=== PATIENT | female | born 1960 | race Caucasian/White ===

== ENCOUNTER 2017-08-06 20:11 | Emergency (ER) | payer OTHER ==
[~2017-08-06] VITALS: Ht 160 cm; Wt 58.1 kg
[~2017-08-06 20:11] MED LIST: ESCITALOPRAM OX10 MG PO; NICODERM CQ1 EAC2 TD; PERCOCET 7.5-31 EACH PO; RANITIDINE HCL150 MG PO
[2017-08-06] MEDS ORDERED: ALPRAZOLAM0.5 MG PO (20:27)
[2017-08-06] MEDS ORDERED: MONTELUKAST SOD10 MG PO (20:27)
[2017-08-06] MEDS ORDERED: OMEPRAZOLE20 MG PO (20:27)
[2017-08-06] MEDS ORDERED: IBUPROFEN800 MG PO (20:27)
[2017-08-06] MEDS ORDERED: VENTOLIN HFA18 GM INH (20:28)
--- NOTE | 2017-08-07 15:57 | EKG ---
[facility] [address] [place], [place] [address] Signed Normal sinus rhythm Low voltage QRS Septal infarct , age undetermined Abnormal ECG No previous ECGs available Confirmed by SANDRA THORPE MD ([id number]) on 08/07/2017 3:57:11 PM Electronically Signed By: SANDRA THORPE MD 08/07/17 1557 PATIENT NAME: ANNY MERAZ Electrocardiogram DATE OF : 62 PHYSICIAN: SANDRA THORPE MD REPORT #: [id number] REPORT IS CONFIDENTIAL AND NOT TO BE RELEASED WITHOUT AUTHORIZATION
== END 2017-08-06 21:45 | disposition left against medical advice (07) ==
LOC: ED 20:11
PROC: 0HQ1XZZ Repair Face Skin, External Approach (ICD-10-PCS; principal; 2017-08-06)
DX: S01.511A Laceration without foreign body of lip, initial encounter (principal); F10.129 Alcohol abuse with intoxication, unspecified; E87.1 Hypo-osmolality and hyponatremia; F41.9 Anxiety disorder, unspecified; K21.9 Gastro-esophageal reflux disease without esophagitis; F17.200 Nicotine dependence, unspecified, uncomplicated; Z88.0 Allergy status to penicillin; Z79.899 Other long term (current) drug therapy; W18.30XA Fall on same level, unspecified, initial encounter; W22.8XXA Striking against or struck by other objects, initial encounter; Y90.8 Blood alcohol level of 240 mg/100 ml or more
CPT/HCPCS: 12011; 80053; 85025; 93005; 93010; 99283; G0480

== ENCOUNTER 2018-08-08 09:44 | Observation (INO) | payer OTHER ==
[~2018-08-08] VITALS: Ht 160 cm; Wt 52.6 kg
[~2018-08-08 09:44] MED LIST changes: +ALPRAZOLAM0.5 MG PO; -ESCITALOPRAM OX10 MG PO; +IBUPROFEN800 MG PO; +OMEPRAZOLE20 MG PO; +VENTOLIN HFA18 GM INH
--- OUTSIDE RECORDS SUMMARY | 2018-08-08 10:00 | XMS ---
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 Details: AMA CRITERIA MET - Group Notification - PDMP CARE PROVIDERS FLOR YEUNG Primary Care Current PHONE: [phone] Deng has no Care Guidelines for this patient. ERadha. VISIT COUNT (12 MO.) 1 [facility]. TOTAL 1 NOTE: Visits indicate total known visits. ED/UCC VISIT TRACKING (12 MO.) 08/08/2018 09:45 [facility] [place] TYPE: Emergency COMPLAINT: - POSS DEHYDRATION/WEAKNESS INPATIENT VISIT TRACKING (12 MO.) No inpatient visits to display in this time frame [id number]
--- NOTE | 2018-08-08 14:12 | NUR ---
PT RECEIVED FROM ED. ADMISSION INTAKE COMPLETED. PT RATING PAIN 7/10, GIVEN TYLENOL. PT DENIES NAUSEA AT THIS TIME. IV LR BOLUS INFUSING. DISCUSSED PLAN OF CARE FOR THE DAY. PT DENIES OTHER NEEDS AT THIS TIME.
--- NOTE | 2018-08-08 17:22 | NUR ---
PT SBA TO BATHROOM, VOIDED. PT ASSISTED BACK TO BED. FRESH WATER PROVIDED. LR AT 125 INFUSING. PT DENIES OTHER NEEDS AT THIS TIME.
[2018-08-08] MEDS ORDERED: MONTELUKAST SOD10 MG PO (17:59)
[2018-08-08] MEDS ORDERED: ESCITALOPRAM OX10 MG PO (17:59)
--- NOTE | 2018-08-08 18:01 | NUR ---
MED REC COMPLETE
--- NOTE | 2018-08-08 19:10 | NUR ---
SHIFT REPORT RECEIVED. PATIENT RESTING IN BED. DENIES ANY NEEDS AT THIS TIME. CALL LIGHT IN REACH.
--- NOTE | 2018-08-08 21:00 | NUR ---
EVENING MEDS PROVIDED PER ORDER. PATIENT REPORTS INTERMITTENT EPIGASTRIC PAIN AFTER BURPING. PRN OXY PROVIDED. NIO FOR MAALOX PLACED. PATIENT DENIES NEED FOR THIS BUT KNOWS IT IS AVAILABLE. PATIENT HAS A LITTLE BIT OF NAUSEA WELL, PRN ZOFRAN PROVIDED. ABD IS TENDER, BUT SOFT WITH ACTIVE BOWEL SOUNDS. LUNGS ARE MOSTLY CLEAR, WITH SOME EXPIRTORY RHONCI ON RIGHT UPPER LOBE. RT IN ROOM FOR NEB TREATMENT AND CPT/IS INSTRUCTION. PATIENT DENIES FURTHER NEEDS AT THIS TIME. IV FLUIDS PER ORDER, SITE WNL. CALL LIGHT IN REACH.
--- NOTE | 2018-08-08 22:00 | NUR ---
PATIENT REPORTS PAIN IS STARTING TO RESOLVE AND BURPING PERSIST BUT NOT PAINFULLY. DISCUSSED OPTIONS WITH PATIENT. SHE DENIES ANY NEEDS. CALL LIGHT IN REACH.
--- NOTE | 2018-08-09 00:30 | NUR ---
PATIENT APPEARS TO BE SLEEPING SOUNDLY. RR 20. NEW IV FLUID BAG STARTED. IV SITE WNL.
--- NOTE | 2018-08-09 02:36 | NUR ---
PHILIPPE VALERIO COMPLETED VS AND ASSISTED PATIENT TO THE BATHROOM. NO NEEDS AT THIS TIME.
--- NOTE | 2018-08-09 04:00 | NUR ---
PATIENT APPEARS TO BE RESTING COMFORTABLY. WAKES EASILY TO VOICE. REPORTS GOOD PAIN CONTROL AT THIS TIME. NO NAUSEA. ABD SLIGHTLY TENDER. LUNGS ARE CLEAR. ALLOWED PATIENT TO REST. CALL LIGHT IN REACH. IV FLUIDS PER ORDER.
--- NOTE | 2018-08-09 06:04 | NUR ---
PATIENT RESTING IN BED. DENIES PAIN OR NAUSEA. STATES "I'M JUST REALLY TIRED". IV FLUIDS PER ORDER, SITE WNL. PATIENT UP RECENTLY WITH TENSILE TESTER TO VOID. NO FURTHER NEEDS AT THIS TIME. CALL LIGHT IN REACH.
--- NOTE | 2018-08-09 06:11 | NUR ---
PATIENT HAD SOME EPIGASTRIC BURNING WITH BURPING AT START OF SHIFT. PRN OXY AND ZOFRAN PROVIDED SOME RELIEF. PATIENT SLEPT THROUGHOUT THE NIGHT. DENIES NAUSEA OR PAIN THIS MORNING. NO EMESIS THIS SHIFT. TOLERATING WATER. NO STOOL THIS SHIFT. IV FLUIDS PER ORDER, SITE WNL. SBA FOR AMULATION. CIWA SCORE 0. NO SIGNS OF WITHDRAWL.
--- NOTE | 2018-08-09 07:05 | NUR ---
BEDSIDE HANDOFF REPORT RECEIVED FROM STONE OPERATOR RN. PT SLEEPING, LEFT UNDISTURBED. LR INFUSING AT 125 ML/HR.
--- NOTE | 2018-08-09 08:47 | NUR ---
PT RESTING IN BED. PT DENIES PAIN. PT ON ROOM AIR, LUNG SOUNDS CLEAR, PRODUCTIVE COUGH WITH CLEAR SPUTUM, PT STATES SHE USUALLY HAS A PRODUCTIVE COUGH IN THE MORNING. PT DENIES NAUSEA, BOWEL TONES ACTIVE, ABD SOFT AND NONTENDER. IV ROCEPHIN INFUSING. PT WITHOUT EDEMA, CMS INTACT. CIWA SCORE 0. MEDICATIONS ADMINISTERED BY PSYCH SALES SPECIALIST WITH SUPERVISION. PT DENIES OTHER NEEDS AT THIS TIME.
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
--- NOTE | 2018-08-09 10:45 | NUR ---
PATIENT IN BED WATCHING TV. WATER REFRESHED. WARM WASHCLOTH OFFERED. CALL LIGHT IN REACH. NO FUTHER NEEDS AT THIS TIME.
--- NOTE | 2018-08-09 13:09 | NUR ---
PT COMPLETED WITH SHOWER. IV LR AT 125 INFUSING. PT ON ROOM AIR, LUNG SOUNDS CLEAR. PT DENIES NAUSEA, TOLERATING DIET, DENIES ABD PAIN. PT WITHOUT EDEMA, CM SINTACT. PT DENIES OTHER NEEDS AT THIS TIME.
--- NOTE | 2018-08-09 13:45 | NUR ---
PT IS ALERT, ORIENTED AND MENTIONED THAT SHE WAS GLAD THAT SHE CAME TO [facility] WHEN SHE DID. FEELING BETTER, BUT APPEARS TO BE BATTLING SOME DISCOURAGEMENT AND EXPRESSED A DESIRE TO GET WELL SOON. GAVE PT KAYLYN AND JUAN RAMON-PT BRUSHED BACK EMOTION AND THANKED ME. JESSIKA HUERTA INTO CARE FOR PT. EXTENDED A BLESSING WILL FOLLOW NEEDED
--- NOTE | 2018-08-09 15:33 | NUR ---
PT RESTING IN BED. PT REQUESTING WARM BLANKET, PROVIDED. PT DENIES OTHER NEEDS AT THIS TIME.
--- NOTE | 2018-08-09 15:38 | NUR ---
PATIENT RESTING IN BED. SHE WAS UP TO USE THE RESTROOM. REFRESHED WATER. CALL LIGHT IN REACH. NO FURTHER NEEDS AT THIS TIME.
--- NOTE | 2018-08-09 18:28 | NUR ---
PT ALERT/ORIENTED. PT ON ROOM AIR, LUNG SOUNDS CLEAR. PT TOLERATING REGULAR DEIT, DENIES NAUSEA. ABD PAIN THIS EVENING, GIVEN 5MG OXYCODONE. PT SBA TO AMBULATE, WALKED IN [place]. LR INFUSING AT 125ML/HR, IV ROCEPHIN AND MAG RIDER GIVEN TODAY. PT VOIDING QS, SMALL BM TODAY, NEED ADDITIONAL STOOL SAMPLE. CIWA SCORE OF 4.
--- NOTE | 2018-08-09 19:10 | NUR ---
SHIFT REPORT RECEIVED. PATIENT SITTING UP IN BED. DENIES PAIN. REPORTS A SMALL AMOUNT OF NAUSEA THAT RESOLVED AFTER SHE VOMITED A SMALL AMOUNT, NOT ENOUGH TO MEASURE IN EMESIS BAG. CIWA OF 3 DUE TO MIGHT TREMOR, NAUSEA, AND HEADACHE. PATIENT APPEARS RESTFUL.
--- NOTE | 2018-08-09 22:00 | NUR ---
PATIENT PROVIDED WITH PRN PAIN MEDS. PATIENT HAS BEEN RESTING IN BED WATCHING TV. DENIES PAIN. SOME VERY MILD NAUSEA, HEADACHE, SMALL TREMOR, AND ITCHING NOTED. PATIENT CIWA = 6. LUNGS ARE CLEAR. SBD SOFT AND NONTENDER. IV FLUIDS PER ORDER, SITE WNL. FRESH ICE WATER PROVIDED. PATIENT UP TO THE BATHROOM WITH PERFORM HER EVENING CARE. SBA, PATIENT APPEARS STEADY ON HER FEET.
--- NOTE | 2018-08-09 23:00 | NUR ---
PATIENT UP TO BATHROOM WITH SBA FROM SANDHYA ROSEN.
--- NOTE | 2018-08-10 01:10 | NUR ---
PATIENT REPORTS 6/10 PAIN IN HER RIGHT ARM AND SIDE. REQUEST PRN PAIN MEDS WHICH WERE PROVIDED. OFFERED HOT/COLD PACK, PATIENT DECLINED. NO OTHER NEEDS AT THIS TIME. CIWA = 4.
--- NOTE | 2018-08-10 02:50 | NUR ---
ASSISTED PATIENT UP TO BATHROOM. SBA, PATIENT STEADY ON FEET. DENIES PAIN OR NAUSEA AT THIS TIME. REPORTS DIFFICULTY SLEEPING AND "WEIRD DREAMS". DENIES ANY NEEDS. APPEARS CALM RESTING IN BED. CALL LIGHT IN REACH.
--- NOTE | 2018-08-10 05:00 | NUR ---
PATIENT UP TO THE BATHROOM. DENIES PAIN OR NAUSEA. REPORTS HAVING DIFFICUTLY SLEEPING DUE TO FREQUENT URINATION. REQUEST A LATER BREAKFAST AND MINIMAL DISRUPTIONS THIS AM. ASSURED PATIENT WE COULD REDUCE INTURUPTIONS THIS AM.
--- NOTE | 2018-08-10 05:41 | NUR ---
PT AWAKE IV ALARM SOUNDING. VOIDING WELL, HAS NO NEEDS AT TIME TIME.
--- NOTE | 2018-08-10 05:53 | NUR ---
PATIENT HAS SLEPT IN SMALL AMOUNTS OFF AND ON THROUGHOUT THE NIGHT. PAIN MINIMAL, PRN OXY X1 FOR SIDE/ARM SORENESS. NO NAUSEA THIS SHIFT. NO STOOLS. IV FLUIDS PER ORDER, LARGE AMOUNTS OF URINE OUTPUT. CIWA SCORE PER ORDERS, MOST RECENT SCORE OF 2. SBA FOR AMBULATION.
--- NOTE | 2018-08-10 07:00 | NUR ---
REPORT RECEIVED FROM TRAIN MASTER RN. PT IN BED WITH EYES CLOSED. LR AT 125ML/HR INFUSING. CALL LIGHT IN REACH.
--- NOTE | 2018-08-10 07:50 | NUR ---
PATIENT SITTING UP IN BED. SETS UP BATHROOM FOR SHOWER. CALL LIGHT WITHIN REACH. NO OTHER NEEDS AT THIS TIME.
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
--- NOTE | 2018-08-10 08:23 | NUR ---
PATIENT SITTING UP IN BED. PATIENT ASKS FOR SUGAR AND A SPOON. SUGAR AND SPOON GIVEN. CALL LIGHT WITHIN REACH. NO OTHER NEEDS AT THIS TIME.
--- NOTE | 2018-08-10 09:41 | NUR ---
PATIENT SITTING UP ON THE EDGE OF THE BED WATCHING TV. VITAL SIGNS AND I&O DONE. HIGH DYASTOLIC BLOOD PRESSURE. RN NOTIFIED. CALL LIGHT WITHIN REACH. NO OTHER NEEDS AT THIS TIME
[2018-08-10] MEDS ORDERED: KEFLEX500 MG PO (09:49)
[2018-08-10] MEDS ORDERED: NICOTINE PATCH1 EAC1 TD (09:50)
[2018-08-10] MEDS ORDERED: MAG-OXIDE400 MG PO (09:51)
[2018-08-10] MEDS ORDERED: VITAMIN B-1100 M1 PO (09:52)
[2018-08-10] MEDS ORDERED: ZOFRAN4 MG PO (09:59)
--- NOTE | 2018-08-10 11:24 | NUR ---
PT OUT AMBULATING HALLS.
--- NOTE | 2018-08-10 11:30 | NUR ---
PATIENT CALLS TO USE BATHROOM. PATIENT SITTING UP IN CHAIR. PATIENT GOES TO USE BATHROOM. PATIENT GOES TO WALK IN THE HALLWAY. ONE PERSON ASSISTING. PATIENT WALKED THREE LAPS. PATIENT BACKS TO CHAIR. CALL LIGHT WITHIN REACH. NO OTHER NEEDS AT THIS TIME
--- NOTE | 2018-08-10 12:00 | NUR ---
DISCHARGE INSTRUCTIONS GIVEN. PT OOB TO SHOWER IV DC'D WNL. QUESTIONS ANSWERED. COPD BUNDLE GIVEN.
--- NOTE | 2018-08-10 13:21 | NUR ---
PATIENT SITTING UP IN CHAIR. FINAL VITAL SIGNS AND I&O WERE OBTAINED PRIOR TO DISCHARGE FROM THE UNIT. ICE WATER GIVEN. CALL LIGHT WITHIN REACH. NO OTHER NEEDS AT THIS TIME
== END 2018-08-10 13:45 | disposition home or self-care (01) ==
LOC: ED 09:44 → MS 09:46
PROVIDERS: ADMIT Student in an Organized Health Care Education/Training Program
DX: N39.0 Urinary tract infection, site not specified (principal); B96.20 Unspecified Escherichia coli [E. coli] as the cause of diseases classified elsewhere; N17.9 Acute kidney failure, unspecified; E87.1 Hypo-osmolality and hyponatremia; K52.9 Noninfective gastroenteritis and colitis, unspecified; F17.210 Nicotine dependence, cigarettes, uncomplicated; F10.10 Alcohol abuse, uncomplicated; K21.9 Gastro-esophageal reflux disease without esophagitis; J44.9 Chronic obstructive pulmonary disease, unspecified; R10.9 Unspecified abdominal pain; G89.29 Other chronic pain; F39 Unspecified mood [affective] disorder; E87.6 Hypokalemia; E83.42 Hypomagnesemia; Z88.0 Allergy status to penicillin; Z79.1 Long term (current) use of non-steroidal anti-inflammatories (NSAID); Z79.899 Other long term (current) drug therapy
CPT/HCPCS: 36415; 51701; 74018; 80048; 80053; 81001; 83690; 83735; 84100; 85025; 87045; 87046; 87077; 87088; 87186; 94640; 94667; 94668; 96361; 96366; 96372; 96376; 97161; 99285-25; 99406; G0378; G0480; J0696; J1650; J2060; J2270; J2405; J3411; J3475; J7030; J7120

== ENCOUNTER 2022-07-20 13:47 | Emergency (ER) | payer OTHER ==
[~2022-07-20] VITALS: Ht 160 cm; Wt 58.6 kg
[~2022-07-20 13:47] MED LIST changes: +ALBUTEROL2.5 MG/3 M INH; +ESCITALOPRAM OX10 MG PO; +FLOVENT HFA12 GM INH; +KEFLEX500 MG PO; +LISINOPRIL20 MG PO; +MAG-OXIDE400 MG PO; +MONTELUKAST SOD10 MG PO; +NICOTINE PATCH1 EAC1 TD; +PREDNISONE10 MG PO; +VITAMIN B-1100 M1 PO; +ZOFRAN4 MG PO
--- OUTSIDE RECORDS SUMMARY | 2022-07-20 13:50 | XMS ---
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 Melanie VISIT COUNT (12 MO.) 1 [facility] TOTAL 1 NOTE: Visits indicate total known visits. ED/UCC VISIT TRACKING (12 MO.) 07/20/2022 13:48 [facility] [place] TYPE: Emergency COMPLAINT: - CAT BITE R HAND INPATIENT VISIT TRACKING (12 MO.) No inpatient visits to display in this time frame [id number]
[2022-07-20] MEDS ORDERED: AMOX TR-K CLV1 EAC1 PO (17:00)
== END 2022-07-20 17:24 | disposition home or self-care (01) ==
LOC: ED 13:47
DX: S61.451A Open bite of right hand, initial encounter (principal); K21.9 Gastro-esophageal reflux disease without esophagitis; Z87.891 Personal history of nicotine dependence; Z88.6 Allergy status to analgesic agent; Z88.0 Allergy status to penicillin; Z79.899 Other long term (current) drug therapy; W55.01XA Bitten by cat, initial encounter
CPT/HCPCS: 36415; 80053; 85025; 90471; 90714; 96365; 99283-25; J0295

== ENCOUNTER 2023-02-24 07:55 | Day surgery (SDC) | payer OTHER ==
[2023-02-21 11:09] VITALS: BP 156/106
[~2023-02-24] VITALS: Ht 160 cm; Wt 55.0 kg
[~2023-02-24 07:55] MED LIST changes: +ALENDRONATE SOD35 MG PO; +AMOX TR-K CLV1 EAC1 PO
[2023-02-24 08:06] VITALS: BP 193/109
[2023-02-24 08:35] VITALS: BP 197/67
--- NOTE | 2023-02-24 08:36 | NUR ---
RETOOK BP AND HAS DECREASED.
--- NOTE | 2023-02-24 09:29 | NUR ---
PT UP TO BR SALINE LOCKED IV FOR IMAGING TO TAKE PT PER WC FOR NEEDLE LOC BR BX.
[2023-02-24 11:29] VITALS: BP 173/104
--- NOTE | 2023-02-24 11:52 | NUR ---
CUT OFF SAW OPERATOR IN TO TALK TO PT.
[2023-02-24 13:26] VITALS: BP 163/113
--- NOTE | 2023-02-24 13:27 | NUR ---
DR PITTS IN TO SEE PT.
--- NOTE | 2023-02-24 14:49 | NUR ---
02/24/23 1449 Sheets,Filomena 1444 PT ARRIVED TO PACU ON 6L VIA MASK, RESP EVEN AND UNLABORED SMALL JAW THRUST USED. PT HEAD MOVED TO SIDE AND JAW THRUST NOT NEEDED TO MAINTAIN AIRWAY.
[2023-02-24] MEDS ORDERED: IBUPROFEN600 MG PO (15:02)
[2023-02-24] MEDS ORDERED: HYDROCODON-ACE1 EA10 PO (15:02)
[2023-02-24] MEDS ORDERED: COZAAR50 MG PO (15:03)
[2023-02-24 15:56] VITALS: BP 142/90
--- NOTE | 2023-02-24 16:12 | NUR ---
PAIN MEDICATION GIVEN, PT EATING PUDDING AND SIPPING WATER WITH NO CONCERNS. PT UP TO BATHROOM WITH RN AT BEDSIDE. PT STEADY ON HER FEET.
--- NOTE | 2023-02-24 16:17 | NUR ---
PT RETURNED TO BED AND REPORTS VOID LARGE AMOUNT. PT RESTING IN BED WITH CALL LIGHT AT WITHIN REACH.
--- NOTE | 2023-02-24 16:20 | NUR ---
O2 REMOVED AND PULSE OX IN PLACE O2 REMAINS MID 90S. PT WATCHING TV AND DENIES ANY CONCERNS, LUNCH BOX ORDER FOR PT.
--- NOTE | 2023-02-24 16:31 | NUR ---
NEW ORDER FOR BP MEDICATION RECEIVED FROM PHONE CALL FROM . LUNCH BOX DILIVERED.
--- NOTE | 2023-02-24 16:36 | NUR ---
1555- PT ARRIVES TO DAY SURGERY ROOM #5 ALERT AND ORIENTED. PT RATES PAIN A 5/10, DENIES NAUSEA. PT PROVIDED LEMON AUGUSTINE SODA AND PUDDING. RESP EVEN AND UNLABORED. OXYGEN SAT MID TO HIGH 90'S ON 2L VIA NC. CONTINUOUS PULSE OX LEFT IN PLACE. BED IN THE LOWEST POSITION, BED RAIL UP X1, CALL LIGHT PROVIDED.
--- NOTE | 2023-02-24 17:04 | NUR ---
LE 1648 DR. PITTS NOTIFIED ABOUT PATIENT PAIN. VERBAL ORDER DILAUDID 4 MG PO. LE 165 DILAUDID 4 MG PO GIVEN. PATIENT STATES PAIN IS A 7/10 PAIN. PATIENT RESTING IN BED. CALL LIGHT WITHIN REACH NO FUTHER NEEDS. NO QUESTIONS AT THIS TIME.
[2023-02-24 17:23] VITALS: BP 134/81
--- NOTE | 2023-02-24 17:42 | NUR ---
LE 1735 PATIENT PAIN IMPROVED. PATIENT HAS MET DISCHARGE CRITERIA. PATIENT WAS ABLE TO DRESS SELF TOLERATED. IV D/C'D WNL. PATIENT GIVEN DISCHARGE INSTRUCTIONS AND NO QUESTIONS AT THIS TIME. PATIENT DAUGHTER AND HER EDUCATED ON PAIN MEDICINE AND TO NOT TAKE THE NEXT ONE FOR 6-8 HOURS. PATIENT AND DAUGHTER UNDERSTANDABLE. PATIENT WHEELED OUT FACILITY NO FUTHER NEEDS. PATIENT IN PRIVATE AUTO WITH DAUGHTER.
--- NOTE | 2023-02-27 15:34 | OR ---
[facility] [address] [place], [place] [address] Signed DATE OF OPERATION: 02/24/2023 SURGEON: Semaj Pitts MD PREOPERATIVE DIAGNOSES: 1. 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 2. Untreated hypertension. POSTOPERATIVE DIAGNOSES: 1. 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 2. Untreated hypertension. PROCEDURES: 1. Injection of methylene blue for sentinel lymph node biopsy, left periareolar area. 2. Left deep axillary sentinel lymph node biopsy (two confirmed sentinel lymph nodes). 3. Left needle localized partial mastectomy upper inner aspect. ANESTHESIA: General LMA, Kyrie Murray CRNA and local 5 mL of 0.25% Marcaine with epinephrine. INDICATION: This 62-year-old white woman is a patient of GAMAL Bacon. She is known to me from the past having undergone cholecystectomy in 2015. She was identified on mammogram to have abnormality in the left upper inner aspect of the breast, underwent biopsy confirming infiltrating ductal carcinoma, ER/RI positive. Tumor size was 4.5 mm so far and it was considered grade 1 of 3. She has no sign of distant or local metastatic disease. She does have underlying COPD and noted today to have significant hypertension, though not treated for that specifically. She is here today to undergo sentinel lymph node biopsy as well as left partial mastectomy for excision of the breast cancer by needle localized technique as the lesion is not palpable. She understands the risk of bleeding, infection, cosmetic deformity, and other unforeseen complications related to the operation and wishes to proceed. FINDINGS: Good uptake of radionuclide to at least two sentinel lymph nodes of the left axilla was noted. Good uptake of methylene blue dye was noted as well. Pathology is pending on those lymph nodes, though they are clinically negative. There is no additional uptake of dye or radionuclide in the axilla following those two areas of excision. As regard to the primary lesion of the breast that was in the medial upper aspect on the Electronically Signed By: SEMAJ PITTS MD 02/27/23 1534 PATIENT NAME: ANNY MERAZ OPERATIVE REPORT DATE OF : 62 REPORT #: [id number] PHYSICIAN: SEMAJ PITTS MD PCP: FLOR CRISTINA PAC REPORT IS CONFIDENTIAL AND NOT TO BE RELEASED WITHOUT AUTHORIZATION [facility] [address], [place] [address] Signed left side, wide resection was undertaken with a clinically negative margin. Specimen radiograph confirmed that the localizing marker wire and so forth were all in the center portion of the excised tissue. There is no palpable abnormality in the parenchyma of the excised breast. Good cosmesis resulted upon closing of the wound. DESCRIPTION OF PROCEDURE: The patient was brought to the operating room, given a general LMA type anesthetic. Preoperative antibiotic Ancef was given and sequential compression device stockings used and heparin subcutaneously administered. 0.5 mL of methylene blue dye was injected in the subepithelial area in the left upper outer periareolar area. The wire for localization emanated from the left upper inner aspect. The wire was trimmed to size. The breast and axilla were prepared with spray Betadine solution and draped sterilely. The C-Trak probe with a sterile cover was used to interrogate the left axilla. Avid uptake was noted. In this area of the mid to upper axilla medially, a small transverse incision was made. Dissection was carried through the dermis with electrocautery and parenchyma was divided as well providing further exposure and extension of the dissection down to the axillary fat. Immediately noted were three channels of blue dye from the sentinel lymph node injection. These culminated in area of lymph tissue approximately a cm or so in size. The probe confirmed avidity with radionuclide as well. The parenchyma was elevated and dissected free with circumferential excision using electrocautery. The lymph node tissue was confirmed to be avid not only with radionuclide, but dye as well. This was passed as sentinel lymph node #1. Additional interrogation of the left axilla had an area of high uptake and again dye and radionuclide, this too was similarly excised though a bit larger and bulk. This too was confirmed to be "hot." Additional interrogation of the axilla, both by inspection, palpation and C-Trak probe show no other sentinel lymph nodes apparent. The wound was then packed with gauze and attention turned towards the primary tumor itself. The wire was several cm from the areolar margin and the lesion was noted to be about 11 cm from the margin. On that basis, an incision was made over the parenchyma of the breast in the natural line of skin tension in the upper inner aspect. Dissection was carried through the dermis with electrocautery after incision with a 15 blade. The wire was delivered to the wound and the parenchyma grasped with an Allis clamp. Wide circumferential excision was undertaken using electrocautery and maintaining good position of the wire. Complete excision was afforded. The specimen was marked with a short stitch superiorly and a long stitch laterally and sent for specimen radiograph. Specimen radiograph ultimately confirmed the lesion in question to be in the center portion of the excised tissue. Minimal electrocautery was used for hemostasis. The parenchyma of the breast was reapproximated with interrupted 2-0 Vicryl in deep dermal layer and a running subcuticular 3-0 Vicryl for the skin. Inspection of the axilla showed no sign of bleeding. The wound was closed with interrupted 2-0 Vicryl and Electronically Signed By: SEMAJ PITTS MD 02/27/23 1534 PATIENT NAME: ANNY MERAZ OPERATIVE REPORT DATE OF : 62 REPORT #: [id number] PHYSICIAN: SEMAJ PITTS MD PCP: FLOR CRISTINA PAC REPORT IS CONFIDENTIAL AND NOT TO BE RELEASED WITHOUT AUTHORIZATION [facility] [address], [place] [address] Signed ultimately a running subcuticular 3-0 Vicryl for the skin. Steri-Strips were applied to each area as were Acticoat dressings. The patient tolerated the procedure well. Blood loss was minimal. Sponge, needle, and instrument counts were reported as correct x3. MD VERONIQUE Oliveira/MODL /[id number] cc: GAMAL Bacon Copies: ~ Electronically Signed By: SEMAJ PITTS MD 02/27/23 1534 PATIENT NAME: ANNY MERAZ OPERATIVE REPORT DATE OF : 62 REPORT #: [id number] PHYSICIAN: SEMAJ PITTS MD PCP: FLOR CRISTINA PAC REPORT IS CONFIDENTIAL AND NOT TO BE RELEASED WITHOUT AUTHORIZATION
--- NOTE | 2023-04-19 10:23 | PATH ---
[facility] [address] [facility] [place], [place] [address] Signed THIS IS AN ADDENDUM REPORT SPECIMEN(S): A SENTINEL LYMPH NODE #1 SPECIMEN(S): B SENTINEL LYMPH NODE #2 SPECIMEN(S): C LEFT UPPER MEDIAL BREAST SPECIMEN SOURCE: A. SENTINEL LYMPH NODE #1 B. SENTINEL LYMPH NODE #2 C. LEFT UPPER MEDIAL BREAST CLINICAL HISTORY: Infiltrating ductal carcinoma, left breast. Short stitch superior, long stitch lateral. Specimen Time to Fixation- 02/25/2023 2:30:00 PM FINAL PATHOLOGIC DIAGNOSIS: A. Lymph node, sentinel #1, excision: - One lymph node, negative for metastatic carcinoma (0/1) B. Lymph node, sentinel #2, excision: - Two lymph nodes, negative for metastatic carcinoma (0/2) C. Breast, left upper medial, excision: - Invasive ductal carcinoma, see synoptic report INVASIVE CARCINOMA OF THE BREAST: Resection SPECIMEN Procedure: Excision (less than total mastectomy) Specimen Laterality: Left TUMOR Tumor Site: Upper medial Histologic Type: Invasive carcinoma of no special type (ductal) Glandular (Acinar) / Tubular Differentiation: Score 1 Nuclear Pleomorphism: Score 1 Mitotic Rate: Score 1 Overall Grade: Grade 1 (scores of 3, 4 or 5) Tumor Size: Greatest dimension of largest invasive focus (Millimeters) - 3 mm Tumor Focality: Single focus of invasive carcinoma Ductal Carcinoma In Situ (DCIS): Not identified Lymphovascular Invasion: Not identified Microcalcifications: Present in invasive carcinoma Treatment Effect in the Breast: No known presurgical therapy PATIENT NAME: HORTENCIA FRYE PATHOLOGY DATE OF : 62 REPORT #: [id number] PHYSICIAN: DERIC CUELLAR PCP: FLOR CRISTINA PAC REPORT IS CONFIDENTIAL AND NOT TO BE RELEASED WITHOUT AUTHORIZATION [facility] [address] [place], [place] [address] Signed MARGINS Margin Status for Invasive Carcinoma: All margins negative for invasive carcinoma Distance from Invasive Carcinoma to Closest Margin: 9 mm Closest Margin(s) to Invasive Carcinoma: Anterior REGIONAL LYMPH NODES Regional Lymph Node Status: All regional lymph nodes negative for tumor Total Number of Lymph Nodes Examined (sentinel and non-sentinel): 3 Number of [place] Nodes Examined: 3 PATHOLOGIC STAGE CLASSIFICATION (pTNM, AJCC 8th Edition) Reporting of pT, pN, and (when applicable) pM categories is based on information available to the pathologist at the time the report is issued. As per the AJCC (Chapter 1, 8th Ed.) it is the managing physician's responsibility to establish the final pathologic stage based upon all pertinent information, including but potentially not limited to this pathology report. pT Category: pT1a Regional Lymph Nodes Modifier: (sn): [place] node(s) evaluated. pN Category: pN0 ADDITIONAL FINDINGS Additional Findings: Biopsy site changes Breast Biomarker Testing Performed on Previous Biopsy: Estrogen Receptor (ER) Status: Positive (greater than 10% of cells demonstrate nuclear positivity) Progesterone Receptor (PgR) Status: Positive HER2 (by immunohistochemistry): Equivocal (Score 2+) HER2 (by in situ hybridization): Negative (not amplified) Testing Performed on COMMENT: As part of [facility]' Quality Improvement Program, this case was reviewed by another member of our pathology staff. BRP MICROSCOPIC EXAMINATION: Histologic sections of all submitted blocks are examined by light microscopy. These findings, together with the gross examination, support the pathologic diagnosis. GROSS DESCRIPTION: A. The specimen, labeled and designated "Alin Frye, " and designated on the PATIENT NAME: HORTENCIA FRYE PATHOLOGY DATE OF : 62 REPORT #: [id number] PHYSICIAN: DERIC CUELLAR PCP: FLOR CRISTINA PAC REPORT IS CONFIDENTIAL AND NOT TO BE RELEASED WITHOUT AUTHORIZATION [facility] [address] [place], [place] [address] Signed requisition "sentinel lymph node #1," is received in formalin and consists of 1.7 x 1.5 x 1.0 cm portion of yellow-sprague adipose tissue that upon dissection reveals one possible lymph node that is 1.4 cm in greatest dimension. The lymph node is sectioned and entirely submitted in cassette A1. Only adipose tissue remains within the container. B. The specimen, labeled and designated "Alin Frye, " and designated on the requisition "sentinel lymph node #2," is received in formalin and consists of 3.2 x 2.6 x 1.5 cm portion of yellow-sprague adipose tissue that upon dissection reveals two possible lymph nodes that measure 2.4 cm and 0.7 cm in greatest dimension. The lymph nodes are sectioned and entirely submitted in two cassettes. Cassette Summary: (B1) one possible lymph node, sectioned (B2) one possible lymph node, trisected C. The specimen, labeled and designated "Alin Frye, " and designated on the requisition "left upper medial breast," is received in formalin and consists of a 27 gram oriented portion of yellow-sprague fibroadipose tissue that is 5.3 x 4.5 x 2.6 cm and has an inserted metal localization wire. A short suture is present and identifies the superior margin; a long suture identifies the lateral margin. The specimen is inked as follows: superior - blue; inferior - green; medial - red; lateral - orange; anterior - yellow; and posterior - black. The specimen is serially sectioned from medial to lateral into nine slices revealing a vision clip in slice five. No discrete mass lesions are grossly identified. The slices surrounding the clip are entirely submitted for histologic examination. Approximately 95% of the remaining specimen is a yellow-sprague greasy adipose tissue and 5% is a white-sprague rubbery fibrous tissue. Customer Servicer sections are submitted in 11 cassettes. Cassette Summary: (C1) slice one, medial soft tissue resection margin, perpendicular (C2-C4) slice four (C5-C7) slice five, with clip (C8-C10) slice six (C11) slice nine, lateral soft tissue resection margin, perpendicular Cold ischemia time: 10 minutes Approximate Formalin time: 67 hours. FB (under the direct supervision of a pathologist) The Gross Description was prepared using a voice recognition system. The report PATIENT NAME: HORTENCIA FRYE PATHOLOGY DATE OF : 62 REPORT #: [id number] PHYSICIAN: DERIC CUELLAR PCP: FLOR CRISTINA PAC REPORT IS CONFIDENTIAL AND NOT TO BE RELEASED WITHOUT AUTHORIZATION [address] [address] Signed was reviewed for accuracy; however, sound-alike word errors, addition and/or deletions may occur. If there is any question about this report, please contact Client Services. ADDITIONAL NOTES: Immunohistochemical and/or in situ hybridization studies if performed in this case included appropriate positive controls that reacted as expected. This test was developed and its performance characteristics determined by [facility]. It has not been cleared or approved by the U.S. Food and Drug Administration. The FDA has determined that such clearance or approval is not necessary. This test is used for clinical purposes. It should not be regarded as investigational or for research. [facility] is certified under the Clinical Laboratory Improvement Amendments of 1988 (CLIA) as qualified to perform high complexity clinical laboratory testing. PERFORMING LABORATORY: Technical component was performed by [facility], [address] [place] [address] (CLIA# [id number]). Professional interpretation was performed by [facility] [address] [place] [phone] [id number] REASON FOR ADDENDUM: To document review of material for external testing. ADDENDUM COMMENT: At the request of Dr. Francisco Sandra, archived slides and blocks for case [id number] are retrieved on Hortencia Frye and reviewed by a pathologist to assess adequacy for Oncotype DX for Breast testing. Block C6 is sent to [facility]. [facility] Professional interpretation was performed by [facility] [facility], [facility], [address] [place] [id number] (CLIA#: [id number]) REASON FOR ADDENDUM: To report results of additional testing. ADDENDUM PATHOLOGIC DIAGNOSIS: - Oncotype DX breast cancer recurrence score: 13 - Distance recurrence risk at 9 years: 4% PATIENT NAME: HORTENCIA FRYE PATHOLOGY DATE OF : 62 REPORT #: [id number] PHYSICIAN: DERIC PATHOLOGY PCP: FLOR CRISTINA PAC REPORT IS CONFIDENTIAL AND NOT TO BE RELEASED WITHOUT AUTHORIZATION [facility] [address] [facility] [place] [address] Signed - Absolute chemotherapy benefit: Less than 1% - Quantitative ER score: Positive (10.2) - Quantitative AK score: Positive (8.3) - Quantitative HER-2 score: Negative (10.0) The technical and professional components of the Oncotype DX testing were performed at [facility] ([place], [place], case # [id number]). Detailed report is kept on file. Diagnostician: Bryce Lilly DO Pathologist Diagnostician: Kartik Pearson MD Pathologist Electronically Signed 04/19/2023 Copies: ~ PATIENT NAME: HORTENCIA FRYE PATHOLOGY DATE OF : 62 REPORT #: [id number] PHYSICIAN: DERIC PATHOLOGY PCP: FLOR CRISTINA PAC REPORT IS CONFIDENTIAL AND NOT TO BE RELEASED WITHOUT AUTHORIZATION
== END 2023-02-24 17:35 | disposition home or self-care (01) ==
LOC: DS 07:55 → EDSTATUS 10:00 → MAM 10:00 → NUC 11:00 → DS 17:35
PROVIDERS: ATTEND Surgery
PROC: 0HBU0ZZ Excision of Left Breast, Open Approach (ICD-10-PCS; principal; 2023-02-24 12:30)
PROC: 07B60ZZ Excision of Left Axillary Lymphatic, Open Approach (ICD-10-PCS; 2023-02-24 12:30)
DX: C50.212 Malignant neoplasm of upper-inner quadrant of left female breast (principal); Z17.0 Estrogen receptor positive status [ER+]; I10 Essential (primary) hypertension; J44.9 Chronic obstructive pulmonary disease, unspecified; Z90.49 Acquired absence of other specified parts of digestive tract; Z78.0 Asymptomatic menopausal state; K21.9 Gastro-esophageal reflux disease without esophagitis; F17.210 Nicotine dependence, cigarettes, uncomplicated; Z79.899 Other long term (current) drug therapy
CPT/HCPCS: 00400; 19285; 76098; 77065; 78195; 88307; A9541; J0131; J0360; J0690; J1100; J1644; J2001; J2250; J2405; J2704; J3010; J3490; J7121; Q9968

== ENCOUNTER 2023-12-14 02:56 | Emergency (ER) | payer OTHER ==
[~2023-12-14] VITALS: Ht 160 cm; Wt 65.0 kg
[~2023-12-14 02:56] MED LIST changes: +ADVAIR 100-501 EACH INH; +COZAAR50 MG PO; +EXEMESTANE25 MG PO; +HYDROCODON-ACE1 EA10 PO; +IBUPROFEN600 MG PO
--- OUTSIDE RECORDS SUMMARY | 2023-12-14 04:46 | XMS ---
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 Melanie VISIT COUNT (12 MO.) 1 JOVI [place] TOTAL 1 NOTE: Visits indicate total known visits. ED/UCC VISIT TRACKING (12 MO.) 12/14/2023 02:56 JOVI [place] TYPE: Emergency COMPLAINT: - FALL INPATIENT VISIT TRACKING (12 MO.) No inpatient visits to display in this time frame [id number]
[2023-12-14] MEDS ORDERED: SODIUM CHLORIDE 0.9% 1,000 ML IV PRN (05:15)
[2023-12-14] MEDS ORDERED: LACTATED RINGER'S 1,000 ML IV SCH (05:15)
[2023-12-14] MEDS ORDERED: DIPHTH,PERTUSS(ACELL),TET VAC 0.5 ML SYRINGE IM ONE (05:15)
[2023-12-14] MEDS ORDERED: ACETAMINOPHEN 500 MG TAB PO ONE (05:15)
[2023-12-14 06:17] LABS: HEMATOCRIT 37.3 % (35.0-50.0); HEMOGLOBIN 12.7 g/dL (12.0-18.0); MCHC 34.1 g/dl (30-36); MCV 95.4 fl (81-99); RBC 3.91 M/ul (4.3-5.7)
[2023-12-14 06:18] LABS: BASOPHILS 1.3 % (0-2); EOSINOPHILS 1.5 % (0-6); LYMPHOCYTES 30.2 % (24-44); MCH 32.6 (27-36); MONOCYTES 0.5 % (0-12); NEUTROPHILS 57.6 % (39-80); PLATELET COUNT 274 K/uL (140-440)
[2023-12-14 06:19] LABS: AMPHETAMINES, URINE NEGATIVE (NEGATIVE); BARBITURATES, URINE NEGATIVE (NEGATIVE); BENZODIAZEPINE, URINE NEGATIVE (NEGATIVE); BUPRENORPHINE, URINE NEGATIVE (NEGATIVE); CANNABINOID, URINE POSITIVE (NEGATIVE); COCAINE, URINE NEGATIVE (NEGATIVE); ECSTASY, URINE NEGATIVE (NEGATIVE); FENTANYL, URINE NEGATIVE (NEGATIVE); METHADONE, URINE NEGATIVE (NEGATIVE); OPIATES, URINE POSITIVE (NEGATIVE); OXYCODONE, URINE NEGATIVE (NEGATIVE); PHENCYCLIDINE, URINE NEGATIVE (NEGATIVE)
[2023-12-14 06:20] LABS: ALBUMIN 3.8 g/dL (3.4-5.0); ALBUMIN/GLOBULIN RATIO 0.9 (1.1-2.4); ANION GAP 9.7 (7-21); BUN/CREATININE RATIO 4.83 (6.0-28.6); CALCIUM 8.1 mg/dL (8.5-10.1); CREATININE, SERUM 0.62 mg/dL (0.55-1.02); POTASSIUM 3.7 mmol/L (3.5-5.1)
[2023-12-14 06:21] LABS: BILIRUBIN, TOTAL 0.4 ng/dL (0.2-1.0)
[2023-12-14 06:22] LABS: BLOOD/HGB, URINE SMALL (Negative); PH, URINE 6.5 (5-7)
[2023-12-14 06:23] LABS: KETONE, URINE NEGATIVE (Negative)
[2023-12-14 06:24] LABS: BACTERIA, URINE 1+ /hpf (negative); CASTS, URINE NONE SEEN \\lpf; CRYSTALS, URINE NONE SEEN (0-1+); EPITHELIAL CELLS, URINE RARE /lpf (0-1+); LEUK ESTERASE, URINE NEGATIVE (negative); NITRITE, URINE NEGATIVE (negative); REFLEX CULTURE, URINE No (No); WHITE BLOOD CELLS, URINE 0-1 /HPF (0-5)
[2023-12-14 08:20] VITALS: BP 100/75
--- NOTE | 2023-12-14 21:33 | EKG ---
[facility] [address] [facility] [place], [place] [address] Signed Sinus rhythm Low voltage QRS Septal infarct , age undetermined Abnormal ECG No previous ECGs available Confirmed by Tayla Taylor MD ([id number]) on 12/14/2023 9:33:32 PM Electronically Signed By: TAYLA TAYLOR MD 12/14/232132 PATIENT NAME: ANNY MERAZ Electrocardiogram DATE OF : 62 PHYSICIAN: TAYLA TAYLOR MD REPORT #: [id number] REPORT IS CONFIDENTIAL AND NOT TO BE RELEASED WITHOUT AUTHORIZATION
== END 2023-12-14 08:20 | disposition home or self-care (01) ==
LOC: ED 02:56
PROVIDERS: Internal Medicine
DX: S01.21XA Laceration without foreign body of nose, initial encounter (principal); S01.511A Laceration without foreign body of lip, initial encounter; S00.12XA Contusion of left eyelid and periocular area, initial encounter; F10.129 Alcohol abuse with intoxication, unspecified; E86.0 Dehydration; K21.9 Gastro-esophageal reflux disease without esophagitis; W01.0XXA Fall on same level from slipping, tripping and stumbling without subsequent striking against object, initial encounter; Z79.51 Long term (current) use of inhaled steroids; Z79.899 Other long term (current) drug therapy; Z88.0 Allergy status to penicillin; Z88.8 Allergy status to other drugs, medicaments and biological substances; Z87.891 Personal history of nicotine dependence
CPT/HCPCS: 12013; 36415; 70450; 70486; 71045; 72125; 80053; 80307; 81001; 83690; 83880; 84484; 85025; 90471; 90715; 93005; 93010; 99285-25; A9270; G0480; J7030; J7121

== ENCOUNTER 2024-06-14 06:35 | Day surgery (SDC) | payer OTHER ==
[2023-08-11 15:38] VITALS: BP 144/90
[2024-06-07 15:36] VITALS: BP 144/90
[~2024-06-14] VITALS: Ht 160 cm; Wt 54.5 kg
[~2024-06-14 06:35] MED LIST changes: +ACETAMINOPHEN-1 EAC1 PO; +LUNESTA1 MG PO; +METHOCARBAMOL750 MG PO; +MIDAZOLAM HCL 5 MG/5 ML VIAL IV PRN; +SODIUM CHLORI1000 M2 PO; +fentaNYL citrate 100 MCG/2 ML VIAL IV PRN
[2024-06-14 06:54] VITALS: BP 121/87
[2024-06-14] MEDS ORDERED: SPIRIVA RESPIMAT4 GM INH (06:56)
[2024-06-14] MEDS ORDERED: IBLOOD GLUCOSE TEST STRIP 1 EA TEST VI PRN (07:00)
[2024-06-14] MEDS ORDERED: LIDOCAINE HCL 1% 5 ML SDV INJ ONE (07:00)
[2024-06-14] MEDS ORDERED: LACTATED RINGER'S 1,000 ML IV SCH (07:00)
--- NOTE | 2024-06-14 07:19 | NUR ---
VISITED DURING SPIRITUAL CARE ROUNDS. PT SUPPORTED BY SPOUSE IN ROOM, BOTH IN OVERALL GOOD SPIRITS, NO IMMEDIATE NEEDS. BACK TENDER FOURDRINIER PROVIDED SUPPORTIVE PRESENCE, HOSPITALITY, PRAYER, FACILITATED INTERACTION WITH THERAPY ANIMAL. PT AND SPOUSE EXPRESSED GRATITUDE.
[2024-06-14] MEDS ORDERED: LIDOCAINE HCL 2% 5 ML SDV ONE (07:21)
[2024-06-14] MEDS ORDERED: propofoL 200 MG/20 ML VIAL ONE (07:21)
[2024-06-14] MEDS ORDERED: fentaNYL citrate 100 MCG/2 ML VIAL ONE (07:25)
[2024-06-14] MEDS ORDERED: ondansetron HCL 4 MG/2 ML VIAL ONE (07:25)
--- NOTE | 2024-06-14 07:28 | NUR ---
PT NOT AVAILABLE FOR VISIT. PROVIDED PRAYER.
--- NOTE | 2024-06-14 08:38 | NUR ---
06/14/24 0838 Ailin Velázquez 0830-PATIENT ARRIVED TO PACU ON 6L MASK NONAROUSABLE ORAL AIRWAY IN PLACE RR EVEN. ABDOMEN SOFT IVF. SR. 0834-PATIENT REACTIVE TO VERBAL STIMULI GRIMACING OPENING EYES ORAL AIRWAY REMOVED. DOZES BACK TO SLEEP. 6L MASK RR EVEN 100%
[2024-06-14 09:45] VITALS: BP 123/80
--- NOTE | 2024-06-14 09:47 | NUR ---
SMITA 0945: PT IS BACK TO DS FROM PACU. SHE HAS YET TO AUDIBLY PASS GAS, SHE REPORTS SHE IS TRYING. WATER ON BEDSIDE TABLE.
[2024-06-14 10:56] VITALS: BP 112/82
--- NOTE | 2024-06-14 10:56 | NUR ---
PT IS DOING MUCH BETTER, NO LONGER WINCING AND DEFINITELY PASSING GAS. HER O2 LEVELS ARE STABLE ON ROOM AIR. SHE EASILY AROUSES WHEN SPOKEN TO, BUT QUICKLY FALLS BACK TO SLEEP.
--- NOTE | 2024-06-14 11:25 | NUR ---
INTO PTS ROOM TO ANSWER CALL LIGHT. PT REPORTS URGE TO VOID. PT IV SL'D & THEN ASSISTED TO SITTING ON EOB. PT THEN ASSISTED W/AMBULATION TO RESTROOM WITH 1 PERSON MODIFIED ASSIST. PT ABLE TO VOID ADAQUATE AMTS OF YELLOW URINE. PT THEN ASSISTED BACK TO ROOM. PT DECLINES TO GET DRESSED FOR DISCHARGE, REPORTING WEAKNESS, PAIN, AND ASKING FOR LUNCH. THIS RN NOTED PTS HAIR MATTED TO BACK OF HEAD AND VISIBLY DIRTY IN APPEARANCE. INQUIRED IF PT HAS SOMEONE AT HOME TO ASSIST HER WITH WASHING AND BRUSHING HER HAIR. PT REPLIED "NO". SHE WENT ON TO SAY SHE HAS TRIED, BUT IS UNABLE TO COMPLETE. PT WAS ASKED IF SHE LIVED ALONE. PT REPLIED "NO" AND WENT ON TO INFORM THIS RN THAT SHE IS HOMELESS AND LIVES IN HER TRUCK WITH HER . PT EXPRESSING FOOD INSECURITY WELL. PT REASSURED THAT THIS RN WOULD SPEAK WITH HER NURSE REGARDING HER REQUESTS AND CONCERNS. PT ASSISTED WITH POSITIONING IN BED, CALL LIGHT PROVIDED. BED IN LOW POSITION, WHEELS LOCKED, AND BILAT RAILS IN PLACE FOR SAFETY. PTS RN NOTIFIED OF THE ABOVE CONCERNS/REPORTS.
--- NOTE | 2024-06-14 12:01 | NUR ---
PT REPORTS TO ANOTHER RN THAT SHE IS CURRENTLY HOMELESS AND LIVING IN HER TRUCK WITH HER . THIS RN VERIFIES THAT INFORMATION. SHE IS ASKING FOR LUNCH, SHE HAS NOT EATEN SINCE TUESDAY. SHE IS ORDERED A SANDWICH PACK AND GIVEN PUDDING, WATER, AND COFFEE. THE SON IS TO STILL HAVE HER SON COME PICK HER UP.
--- NOTE | 2024-06-14 12:56 | NUR ---
1250 PT USED CALL LIGHT TO ALERT RN THAT PT GAS PAINS ARE WORSE. PT SITTING UPRIGHT IN BED GROANING IN PAIN. EDUCATED PT ABOUT GAS PAINS AND HOW TO HELP RELEIVE THEM. PT LAID ON RIGHT SIDE, AND EDUCATED TO ATTEMPT TO PASS GAS TO HELP RELIEVE PAIN. PT STATES THAT PAIN IS BETTER WHEN LAYING ON HER SIDE. BED LOW AND LOCKED, CALL LIGHT WITHIN REACH. PRIMARY RN, NOTIFIED.
[2024-06-14 13:52] VITALS: BP 132/132
--- NOTE | 2024-06-14 14:01 | EKG ---
[facility] [address] [facility] [place], [place] [address] Signed Normal sinus rhythm Septal infarct (cited on or before 06-AUG-2017) Abnormal ECG When compared with ECG of 14-DEC-2023 03:07, No significant change was found Confirmed by Tayla Taylor MD ([id number]) on 06/14/2024 2:01:43 PM Electronically Signed By: ATYLA TAYLOR MD 06/14/24 1401 PATIENT NAME: ANNY MERAZ Electrocardiogram DATE OF : 62 PHYSICIAN: TAYLA TAYLOR MD REPORT #: [id number] REPORT IS CONFIDENTIAL AND NOT TO BE RELEASED WITHOUT AUTHORIZATION
--- NOTE | 2024-06-14 15:02 | NUR ---
LE 1155: PT IS GIVEN COFFEE AND PUDDING. DIETARY IS CALLED AND A SANDWICH BOX IS ORDERED FOR THE PT. LE 1213: CHW WORKER, BERNIE, IS CALLED AND MESSAGE IS LEFT REGARDING THIS PT'S HOME LIFE SITUATION. A CALLBACK IS REQUESTED. LE 1221: HOUSE SUP IS CALLED AND ASKED IF THERE IS A ROOM AVAILABLE THAT THE PT WOULD BE ABLE TO TAKE A SHOWER IN. ROOM 117 IS AVAILABLE WHENEVER THE PT IS READY TO TAKE A SHOWER. THE PT HAS TECHNICALLY MET ALL DC CRITERIA. PT STATES THAT HER SON'S PHONE IS NOT WORKING AND HE WON'T BE ABLE TO PICK HER UP UNTIL 1600 WHEN HE GETS BACK TO TOWN AND OFF WORK. OTHERWISE, SHE COULD CALL HER EX-DAUGHTER IN LAW, BUT SHE DOESN'T GET OFF WORK UNTIL 1700. PT IS EDUCATED LE 1255: THIS RN EDUCATES THE PT THAT SHE WILL TAKE HER DOWN TO TAKE A SHOWER AFTER LUNCH. LE 1347: SON IS CALLED TO VERIFY WORKING PHONE NUMBER AND AVAILABILITY TO PICK THE PT UP. HE STATES HE CAN BE HERE IN 10 MINUTES WHEN SHE IS READY. LE 1356: PT IS GIVEN WRITTEN AND VERBAL DC INSTRUCTIONS. SHE VERBALIZES UNDERSTANDING. QUESTIONS ARE ASKED AND ANSWERED. LE 1400: PT IS TAKEN TO MED/SURG ROOM 117 SO THAT SHE CAN SHOWER. LE 1432: PT IS BROUGHT BACK TO SO THAT SHE CAN GET DRESSED. LE 1438: PT'S SON CALLED AND NOTIFIED THAT SHE IS GETTING DRESSED AND WILL BE READY TO GO SOON. LE 1445: PT IS DC'D HOME VIA . SHE IS ABLE TO TRANSFER HERSELF WITHOUT ISSUES.
--- NOTE | 2024-06-15 06:19 | OR ---
[facility] [address] [place], [place] [address] Signed DATE OF OPERATION: 06/14/2024 SURGEON: Corwin Juarez MD PREOPERATIVE DIAGNOSES: 1. Chronic esophageal dysphagia. 2. Chronic early satiety. 3. Gastroesophageal reflux disease. 4. History of gastric duodenitis associated with smoking. 5. Positive CLOtest in 2011 without treatment. 6. Tortuous colon. 7. Screening colonoscopy. 8. Anemia with hemoglobin 11.9 and mean cell volume 95. POSTOPERATIVE DIAGNOSES: 1. Mild diffuse gastritis. 2. Swollen vocal cords. 3. Long redundant colon. 4. Tortuous colon. 5. Minimal sigmoid diverticulosis. PROCEDURES: 1. Esophagogastroduodenoscopy with CLOtest and biopsies of the duodenum, pyloric bulb, and antrum. 2. Colonoscopy without biopsy. ESTIMATED BLOOD LOSS: None. INDICATIONS: Hortencia is a 64-year-old female asked to see me for both upper and lower endoscopy. We started this process in June 2023, unfortunately it never materialized. We talked about the progress notes described of colonoscopy in 2020. She said she cannot recall that procedure. She does recall the one and only colonoscopy and upper endoscopy in 2011 at the age of 51 [address] Corwin Carrasco, he is a general surgeon in the [place], [place]. At that time, she was having esophageal dysphagia and epigastric abdominal pain and also needed a screening colonoscopy. She was found to have some gastroduodenitis along with a positive CLOtest. She cannot remember taking any antibiotics for the positive CLOtest. She also has a tortuous colon. She was told to follow up in 10 years for repeat screening colonoscopy. She has no family history of colon cancer or polyps. Electronically Signed By: CORWIN JUAREZ MD 06/15/24 0619 PATIENT NAME: HORTENCIA MERAZ OPERATIVE REPORT DATE OF : 62 REPORT #: [id number] PHYSICIAN: CORWIN JUAREZ MD PCP: FLOR CRISTINA PAC REPORT IS CONFIDENTIAL AND NOT TO BE RELEASED WITHOUT AUTHORIZATION [facility] [address] [place], [place] [address] Signed Apparently, she had chronic diarrhea for many years. She said it is now resolved. She has had her gallbladder came out in 2014. She apparently has acid reflux and complains of this chronic esophageal dysphagia. At one point, she was even complaining of early satiety. She had a barium swallow in November of 2023 through her primary care provider, this was unremarkable. She also had a CT scan of abdomen and pelvis in November 2023 to her primary care provider. There was no concerns on that CT scan with respect to the GI tract. She did have COPD and a 6 cm cyst in the left adnexa along with fractures at T12, L3, and L4. She told me she does have chronic back pain. She uses tramadol. In the office, I gave her pamphlets on both upper and lower endoscopy. We went through those together. She understands the nature of those two tests. There is risk including, but not limited to gas bloating, crampy abdominal pain, bleeding, perforation requiring surgery, and missed diagnosis. We also reviewed the instructions for a bowel prep line by line. She told me she wants nothing to do with those one gallon commercial bowel preps. She told me she has MiraLAX at home and she is very familiar with that product. We also went through her very long list of medications. We asked her to hold the aspirin 3 days prior to the procedure, which we marked on her preop sheet. She is welcome to continue her other medications. I also explained to her she is in need of monitored anesthesia care given her long history of smoking along with COPD and sleep apnea requiring her CPAP mask. She also has a history of opioid abuse. She is also using Xanax and citalopram for her anxiety. We did have her undergo preoperative blood work and an EKG. We found that her hemoglobin was slightly low at 11.9 with a mean cell volume at 95. She also understands an adult person has to take her home afterwards. She had expressed understanding and wished to proceed. PROCEDURE NOTE: EGD: Hortencia was taken into our endoscopy suite, placed in a supine semi-recumbent position. A bite block was utilized for the upper endoscopy. She was given monitored anesthesia care, propofol infusion per our nurse internal controls manager. The adult gastroscope was introduced, and we could see that her vocal cords were closed and the one vocal cord looked swollen. We passed the scope down the esophagus and out into the duodenum without difficulty. She had nice clear bile in her duodenum. The duodenum and pyloric channel were unremarkable. We went and took a biopsy of the duodenum because of the history of diarrhea, although it seems to be resolved. We went and took a biopsy of the pyloric bulb, although it seems to be fine. Her stomach showed very minimal irritation, most likely associated with her smoking. We went ahead and took a biopsy of the antrum for pathologic review as well as CLOtest. There were no ulcerations in the pyloric bulb or the stomach. The incisura, body, and fundus of the stomach were unremarkable. She has no visible evidence of a hiatal hernia. The scope was withdrawn up through the area of the GE junction, which was compliant without stricture. There was no gastric or esophageal varices. She has minimal disruption to the Z-line. Her GE junction is at 37 cm. The distal middle and upper esophagus were unremarkable. As the scope was withdrawn once again, we can see that the one vocal cord seems to be swollen. It does Electronically Signed By: CORWIN JUAREZ MD 06/15/24 0619 PATIENT NAME: HORTENCIA MERAZ OPERATIVE REPORT DATE OF : 62 REPORT #: [id number] PHYSICIAN: CORWIN JUAREZ MD PCP: FLOR CRISTINA PAC REPORT IS CONFIDENTIAL AND NOT TO BE RELEASED WITHOUT AUTHORIZATION [facility] [address] [place], [place] [address] Signed not appear to be a classic polyp nor does it appear to be obvious cancer. Nevertheless, it might be reviewed by an Ear, Nose and Throat surgeon, given her long history of smoking and a raspy voice. After this, the gas was suctioned out, the gastroscope removed. Hortencia tolerated the upper endoscopy quite well. Colonoscopy: Hortencia was rotated into the left lateral decubitus position. She was maintained on propofol infusion per our nurse internal controls manager. A digital rectal exam was performed. This was unremarkable. No external hemorrhoids. No masses. Her sphincter tone was lax from the all the propofol. The adult colonoscope was introduced and advanced under direct visualization of camera. As Dr. Carrasco noted, in 2011 she does have a long redundant colon. It took quite a bit of time actually to get up through her somewhat narrow long redundant sigmoid and left colon. Even the transverse colon and hepatic flexure gave us trouble. She is very small of build and her colon is fairly narrow. Fortunately, her prep was quite good. We slowly but surely over quite some time with some extra propofol made it down into the cecum itself. We suctioned out the bilious fluid. We could easily see the appendiceal orifice and the ileocecal valve. The scope was then slowly withdrawn. We saw some diverticula in the sigmoid colon. They were moderate in size, few in number and scattered about. Once in the rectum, the scope was retroflexed and there was no additional pathology noted above the anal canal. After this, the gas was suctioned out, colonoscope removed. Hortencia tolerated the procedure quite well. RECOMMENDATIONS: I will see Hortencia back in my office in 7 to 14 days to review her results. I think her vocal cord is swollen from all her smoking. She might see one of the Ear, Nose, and Throat surgeons in that regard. She will always need monitored anesthesia care. She should repeat her screening colonoscopy in 10 years so long as her health holds up. Corwin Juarez MD ALB/MODL /[id number] cc: MD Flor Baldwin PA-C Electronically Signed By: CORWIN JUAREZ MD 06/15/24 0619 PATIENT NAME: HORTENCIA MERAZ OPERATIVE REPORT DATE OF : 62 REPORT #: [id number] PHYSICIAN: CORWIN JUAREZ MD PCP: FLOR CRISTINA PAC REPORT IS CONFIDENTIAL AND NOT TO BE RELEASED WITHOUT AUTHORIZATION [address] [address] Signed Patient Chart Copies: CORWIN JUAREZ MD ~ Electronically Signed By: CORWIN JUAREZ MD 06/15/24 0619 PATIENT NAME: HORTENCIA MERAZ OPERATIVE REPORT DATE OF : 62 REPORT #: [id number] PHYSICIAN: CORWIN JUAREZ MD PCP: FLOR CRISTINA PAC REPORT IS CONFIDENTIAL AND NOT TO BE RELEASED WITHOUT AUTHORIZATION
--- NOTE | 2024-06-19 11:14 | PATH ---
[facility] [address] [place], [place] [address] Signed SPECIMEN(S): A DUODENAL BIOPSY SPECIMEN(S): B ANTRUM/PYLORUS BIOPSY SPECIMEN(S): C DUODENAL BULB BIOPSY SPECIMEN SOURCE: A. DUODENAL BIOPSY B. ANTRUM/PYLORUS BIOPSY C. DUODENAL BULB BIOPSY CLINICAL HISTORY: GERD, esophageal dysphagia, gastritis. FINAL PATHOLOGIC DIAGNOSIS: A. Duodenal biopsy: - Benign duodenal mucosa, negative for specific diagnostic abnormality. B. Antrum/pylorus biopsy: - Gastric-type mucosa with focal mild chronic gastritis. - A Helicobacter pylori immunostain is negative for organisms. C. Duodenal bulb biopsy: - Benign duodenal mucosa, negative for specific diagnostic abnormality. JVR:clv MICROSCOPIC EXAMINATION: Histologic sections of all submitted blocks are examined by light microscopy. These findings, together with the gross examination, support the pathologic diagnosis. A Helicobacter pylori immunostain is performed with appropriate positive and negative controls on block B1 and is negative for organisms. JVR:clv GROSS DESCRIPTION: A. The specimen, labeled and designated "[place], duodenum biopsy," is received in formalin and consists of two sprague soft tissue fragments, ranging from 0.2 cm. Entirely submitted in (A1). B. The specimen, labeled and designated "[place], antrum biopsy," is received in formalin and consists of one sprague soft tissue fragment, 0.4 cm. Entirely submitted in (B1). C. The specimen, labeled and designated "[place], duodenum bulb biopsy," is received in formalin and consists of one sprague soft tissue fragment, 0.2 cm. Entirely submitted in (C1). JS (under the direct supervision of a pathologist) PATIENT NAME: ANNY MERAZ PATHOLOGY DATE OF : 62 REPORT #: [id number] PHYSICIAN: DERIC CUELLAR PCP: FLOR CRISTINA PAC REPORT IS CONFIDENTIAL AND NOT TO BE RELEASED WITHOUT AUTHORIZATION [facility] [address] [place], [place] [address] Signed The Gross Description was prepared using a voice recognition system. The report was reviewed for accuracy; however, sound-alike word errors, addition and/or deletions may occur. If there is any question about this report, please contact Client Services. PERFORMING LABORATORY: Technical component was performed by [facility], [address] [place] [address] (CLIA# [id number]). Professional interpretation was performed by [facility], [address] [place] [id number] (CLIA#: [id number]). Diagnostician: Harrison Hernandez MD Pathologist Electronically Signed 06/19/2024 Copies: ~ PATIENT NAME: ANNY MERAZ PATHOLOGY DATE OF : 62 REPORT #: [id number] PHYSICIAN: DERIC PATHOLOGY PCP: FLOR CRISTINA PAC REPORT IS CONFIDENTIAL AND NOT TO BE RELEASED WITHOUT AUTHORIZATION
== END 2024-06-14 14:45 | disposition home or self-care (01) ==
LOC: DS 06:35
PROVIDERS: ATTEND Colon & Rectal Surgery
PROC: 0DB78ZX Excision of Stomach, Pylorus, Via Natural or Artificial Opening Endoscopic, Diagnostic (ICD-10-PCS; 2024-06-14)
PROC: 0DJD8ZZ Inspection of Lower Intestinal Tract, Via Natural or Artificial Opening Endoscopic (ICD-10-PCS; principal; 2024-06-14 07:30)
PROC: 0DB98ZX Excision of Duodenum, Via Natural or Artificial Opening Endoscopic, Diagnostic (ICD-10-PCS; 2024-06-14 07:30)
DX: Z12.11 Encounter for screening for malignant neoplasm of colon (principal); K29.50 Unspecified chronic gastritis without bleeding; K57.30 Diverticulosis of large intestine without perforation or abscess without bleeding; K63.89 Other specified diseases of intestine; J38.3 Other diseases of vocal cords; J44.9 Chronic obstructive pulmonary disease, unspecified; K21.9 Gastro-esophageal reflux disease without esophagitis; E03.9 Hypothyroidism, unspecified; G47.30 Sleep apnea, unspecified; Z87.891 Personal history of nicotine dependence; Z87.19 Personal history of other diseases of the digestive system; Z79.899 Other long term (current) drug therapy; Z88.0 Allergy status to penicillin; Z88.8 Allergy status to other drugs, medicaments and biological substances; Z90.49 Acquired absence of other specified parts of digestive tract
CPT/HCPCS: 00813; 36415; 87077; 88305; 88342; 93005; 93010; J2003; J2405; J2704; J3010; J7121